=== PATIENT | male | born 1980 | race Caucasian/White ===

== ENCOUNTER 2020-09-04 00:18 | Emergency (ER) | payer BC, OTHER ==
[~2020-09-04] VITALS: Ht 182.9 cm; Wt 88.3 kg
[2020-09-04] MEDS ORDERED: BOOSTRIX/ADACEL VACCINE (DIPHTH/PERTUSS/ACELL/TETANUS) 0.5ML SYR IM ONE (00:50)
[2020-09-04] MEDS ORDERED: DERMABOND TOPICAL SKIN ADHESIVE TOP ONE ×2 (00:50→01:35)
[2020-09-04 01:34] VITALS: BP 154/97
== END 2020-09-04 01:37 | disposition home or self-care (01) ==
LOC: M ED 00:18
DX: S61.216A Laceration without foreign body of right little finger without damage to nail, initial encounter (principal); W26.8XXA Contact with other sharp object(s), not elsewhere classified, initial encounter; Y92.019 Unspecified place in single-family (private) house as the place of occurrence of the external cause; Y93.9 Activity, unspecified; Y99.9 Unspecified external cause status

== ENCOUNTER 2024-02-18 11:56 | Emergency (ER) | payer BC ==
[~2024-02-18] VITALS: Ht 182.9 cm; Wt 80.8 kg
[2024-02-18] MEDS ORDERED: CEPH250T PO (12:22)
[2024-02-18 13:13] VITALS: BP 142/68; TEMP 98; O2SAT 98
== END 2024-02-18 13:14 | disposition home or self-care (01) ==
LOC: M ED 11:56
DX: S62.631A Displaced fracture of distal phalanx of left index finger, initial encounter for closed fracture (principal); W23.1XXA Caught, crushed, jammed, or pinched between stationary objects, initial encounter; F17.200 Nicotine dependence, unspecified, uncomplicated; F10.10 Alcohol abuse, uncomplicated; Y92.9 Unspecified place or not applicable; Y93.89 Activity, other specified; Y99.0 Civilian activity done for income or pay; Z79.2 Long term (current) use of antibiotics

== ENCOUNTER → 2024-03-11 | Outpatient (CLI) | payer BC ==
[~2024-03-11] MED LIST: CEPH250T PO
== END ==
LOC: M SOG 07:54
PROVIDERS: ATTEND Physician Assistant
DX: S62.631D Displaced fracture of distal phalanx of left index finger, subsequent encounter for fracture with routine healing (principal)

== ENCOUNTER → 2024-04-08 | Outpatient (CLI) | payer BC | LOC: M SOG 07:23 | PROVIDERS: ATTEND Physician Assistant | DX: S62.631D Displaced fracture of distal phalanx of left index finger, subsequent encounter for fracture with routine healing (principal) ==